=== PATIENT | male | born 1965 ===

== ENCOUNTER → 2024-03-26 18:03 | Outpatient (CLI) | payer BC, SELFPAY ==
--- NOTE | 2024-03-26 | DI.RAD_ITS ---
Exam(s) XR KNEE LT 3V AP,LAT,BOY EXAM: XR KNEE LT 3V AP,LAT,BOY CLINICAL HISTORY: Pain of left knee. TECHNIQUE: 2D digital imaging was performed. Three views. COMPARISON: No exams were available for comparison FINDINGS: BONES: No acute fracture is present. No bony destructive lesion is seen. JOINTS: The knee is normally aligned. No joint effusion is seen. The joint spaces are maintained. SOFT TISSUE: Anterior soft tissue swelling. IMPRESSION: Anterior soft tissue swelling. DATA REPOSITORY: RADIATION DOSE DELIVERED:
== END ==
PROVIDERS: Visit Provider Physician Assistant Medical
DX: M25.562 Pain in left knee (principal); R22.42 Localized swelling, mass and lump, left lower limb
CPT/HCPCS: 73562